=== PATIENT | female | born 1935 ===

== ENCOUNTER 2017-10-30 08:47 | Outpatient (CLI) | payer OTHER | END 2017-10-30 17:00 | disposition home or self-care (01) | LOC: TOM 08:47 | DX: K57.30 Diverticulosis of large intestine without perforation or abscess without bleeding (principal); D51.3 Other dietary vitamin B12 deficiency anemia; M81.0 Age-related osteoporosis without current pathological fracture; I10 Essential (primary) hypertension; E59 Dietary selenium deficiency; E06.3 Autoimmune thyroiditis; E06.5 Other chronic thyroiditis; E78.2 Mixed hyperlipidemia; K90.89 Other intestinal malabsorption | CPT/HCPCS: 74177; Q9965 ==